=== PATIENT | female | born 1965 | race Two or more races ===

== ENCOUNTER 2022-02-08 10:13 | Outpatient (CLI) | payer OTHER | END 2022-02-08 10:14 | disposition home or self-care (01) | LOC: LAB 10:13 | PROVIDERS: ATTEND Internal Medicine Hematology & Oncology | DX: D50.8 Other iron deficiency anemias (principal); I10 Essential (primary) hypertension; R74.02 Elevation of levels of lactic acid dehydrogenase [LDH]; K76.89 Other specified diseases of liver; D51.8 Other vitamin B12 deficiency anemias; D68.8 Other specified coagulation defects; D72.818 Other decreased white blood cell count; F20.0 Paranoid schizophrenia; E55.9 Vitamin D deficiency, unspecified; M77.32 Calcaneal spur, left foot; R73.01 Impaired fasting glucose; R63.4 Abnormal weight loss; R91.8 Other nonspecific abnormal finding of lung field; D25.9 Leiomyoma of uterus, unspecified ==

== ENCOUNTER → 2022-09-19 08:32 | Outpatient (CLI) | payer OTHER | END | disposition home or self-care (01) | LOC: LAB 08:32 | PROVIDERS: ATTEND Internal Medicine Hematology & Oncology | DX: D50.8 Other iron deficiency anemias (principal); I10 Essential (primary) hypertension; R74.02 Elevation of levels of lactic acid dehydrogenase [LDH]; K76.89 Other specified diseases of liver; D51.8 Other vitamin B12 deficiency anemias; E55.9 Vitamin D deficiency, unspecified; D68.8 Other specified coagulation defects; C50.919 Malignant neoplasm of unspecified site of unspecified female breast; R97.8 Other abnormal tumor markers; C56.9 Malignant neoplasm of unspecified ovary; R97.1 Elevated cancer antigen 125 [CA 125]; D72.818 Other decreased white blood cell count; D68.00 Von Willebrand disease, unspecified; F20.0 Paranoid schizophrenia; F33.9 Major depressive disorder, recurrent, unspecified; M77.32 Calcaneal spur, left foot; R73.01 Impaired fasting glucose; G57.52 Tarsal tunnel syndrome, left lower limb; D25.9 Leiomyoma of uterus, unspecified; R63.4 Abnormal weight loss ==

== ENCOUNTER → 2023-02-03 16:57 | Outpatient (CLI) | payer OTHER | END | disposition home or self-care (01) | LOC: LAB 16:57 | PROVIDERS: ATTEND Obstetrics & Gynecology | DX: N39.0 Urinary tract infection, site not specified (principal) ==

== ENCOUNTER 2023-05-30 08:06 | Outpatient (CLI) | payer OTHER | END 2023-05-30 08:07 | disposition home or self-care (01) | LOC: NUCLEAR 08:06 | PROVIDERS: ATTEND Internal Medicine Hematology & Oncology | DX: C18.2 Malignant neoplasm of ascending colon (principal); D72.818 Other decreased white blood cell count; D68.00 Von Willebrand disease, unspecified; D51.8 Other vitamin B12 deficiency anemias; F20.0 Paranoid schizophrenia; F33.9 Major depressive disorder, recurrent, unspecified; E55.9 Vitamin D deficiency, unspecified; M77.32 Calcaneal spur, left foot; R73.01 Impaired fasting glucose; G57.52 Tarsal tunnel syndrome, left lower limb; R63.4 Abnormal weight loss; R91.8 Other nonspecific abnormal finding of lung field; D25.9 Leiomyoma of uterus, unspecified | CPT/HCPCS: 78815; A9552 ==

== ENCOUNTER 2024-02-15 07:31 | Outpatient (CLI) | payer OTHER | END 2024-02-15 07:32 | disposition home or self-care (01) | LOC: NUCLEAR 07:31 | PROVIDERS: ATTEND Internal Medicine Hematology & Oncology | DX: C18.2 Malignant neoplasm of ascending colon (principal) | CPT/HCPCS: 78815; A9552 ==

== ENCOUNTER 2024-09-10 07:27 | Outpatient (CLI) | payer OTHER | END 2024-09-10 07:28 | disposition home or self-care (01) | LOC: NUCLEAR 07:27 | PROVIDERS: ATTEND Internal Medicine Hematology & Oncology | DX: C18.2 Malignant neoplasm of ascending colon (principal) | CPT/HCPCS: 78815; A9552 ==